=== PATIENT | female | born 1940 | race Caucasian/White ===

== ENCOUNTER 2018-06-06 08:55 | Day surgery (SDC) | payer OTHER, MEDICARE ==
[~2018-06-06 08:55] MED LIST: ONDANSETRON 4 MG (ODT) TAB PO SCH
--- OUTSIDE RECORDS SUMMARY | 2018-06-06 09:38 | XMS REPORT | Clinical Summary ---
:1940 Author Organization [facility] Address [address] [place] [id number] Care Team Providers Name Role Phone Lawrence Aburto MD Primary Care Provider Allergies Not on File Current Medications Not on file Active Problems Not on file Encounters Date Type Specialty Care Team Description 05/25/2018 Hospital Encounter Radiology Bhavesh Tee MD 05/25/2018 Hospital Encounter Radiology Bhavesh Tee, Pain of lower extremity, unspecified laterality; Low back pain, unspecified back pain laterality, unspecified chronicity, with sciatica presence unspecified 05/25/2018 Hospital Encounter Radiology Bhavesh Tee MD 05/25/2018 Hospital Encounter Radiology Bhavesh Tee, Pain of lower extremity, unspecified laterality; Low back pain, unspecified back pain laterality, unspecified chronicity, with sciatica presence unspecified 05/11/2018 Transcribe Orders Access Bhavesh Tee, Pain of lower extremity, unspecified laterality (Primary Dx); Low back pain, unspecified back pain laterality, unspecified chronicity, with sciatica presence unspecified after 06/05/2017 Social History Tobacco Use Types Packs/Day Years Used Date Never Assessed Sex Assigned at Date Recorded Not on file Last Filed Vital Signs Not on file Plan of Treatment Health Maintenance Due Date Last Done Comments SHINGRIX VACCINE (#1) 1991 ZOSTER VACCINE 2001 PNEUMOCOCCAL POLYSACCHARIDE VACCINE AGE 65 AND OVER 2006 PNEUMOCOCCAL-13 2006 INFLUENZA VACCINE 04/11/2018 Procedures Procedure Name Priority Date/Time Associated Diagnosis Comments NM BONE SCAN WHOLE Routine 05/25/2018 2:11 PM Pain of lower Results for this BODY CDT extremity, procedure are in unspecified the results laterality section. Low back pain, unspecified back pain laterality, unspecified chronicity, with sciatica presence unspecified NM SPECT BONE SCAN Routine 05/25/2018 2:10 PM Pain of lower Results for this CDT extremity, procedure are in unspecified the results laterality section. Low back pain, unspecified back pain laterality, unspecified chronicity, with sciatica presence unspecified after 06/05/2017 Results NM Bone Scan Whole Body (05/25/2018 2:11 PM) Narrative Performed At PROCEDURE:NM BONE SCAN WHOLE BODY [facility] INDICATION:Low back pain.Pain of lower extremity. COMPARISON:No comparison imaging. TECHNIQUE: Approximately three hours after the IV administration of 25 mCi of Tc-99m labeled MDP, routine whole body planar bone scanning was performed in the anterior and posterior projections. SPECT imaging of the lumbar spine was obtained. FINDINGS:Planar and SPECT imaging of the lumbar spine demonstrates diffuse degenerative uptake.No evidence for underlying compression fracture.Whole body imaging demonstrates degenerative uptake in the shoulders, right hip, and right knee. IMPRESSION: 1.Diffuse degenerative uptake in the lumbar spine.No evidence for acute fracture or aggressive bone lesion. 2.Degenerative uptake about the right hip. [facility]-[id number] Procedure Note Interface, Radiology Results Incoming - 05/25/2018 5:06 PM CDT PROCEDURE: NM BONE SCAN WHOLE BODY INDICATION: Low back pain. Pain of lower extremity. COMPARISON: No comparison imaging. TECHNIQUE: Approximately three hours after the IV administration of 25 mCi of Tc-99m labeled MDP, routine whole body planar bone scanning was performed in the anterior and posterior projections. SPECT imaging of the lumbar spine was obtained. FINDINGS: Planar and SPECT imaging of the lumbar spine demonstrates diffuse degenerative uptake. No evidence for underlying compression fracture. Whole body imaging demonstrates degenerative uptake in the shoulders, right hip, and right knee. IMPRESSION: 1. Diffuse degenerative uptake in the lumbar spine. No evidence for acute fracture or aggressive bone lesion. 2. Degenerative uptake about the right hip. [facility]-[id number] Performing Organization Address City/State/Zipcode Phone Number [facility] [address] [place] [address] NM Spect Bone Scan (05/25/2018 2:10 PM) Narrative Performed At PROCEDURE:NM SPECT BONE SCAN. [facility] INDICATION:Low back pain.Pain of lower extremity. COMPARISON:No comparison imaging. TECHNIQUE: Approximately three hours after the IV administration of 25 mCi of Tc-99m labeled MDP, routine whole body planar bone scanning was performed in the anterior and posterior projections. SPECT imaging of the lumbar spine was obtained. FINDINGS:Planar and SPECT imaging of the lumbar spine demonstrates diffuse degenerative uptake.No evidence for underlying compression fracture.Whole body imaging demonstrates degenerative uptake in the shoulders, right hip, and right knee. IMPRESSION: 1.Diffuse degenerative uptake in the lumbar spine.No evidence for acute fracture or aggressive bone lesion. 2.Degenerative uptake about the right hip. [facility]-[id number] Procedure Note [facility], Radiology Results Incoming - 05/25/2018 5:07 PM CDT PROCEDURE: NM SPECT BONE SCAN. INDICATION: Low back pain. Pain of lower extremity. COMPARISON: No comparison imaging. TECHNIQUE: Approximately three hours after the IV administration of 25 mCi of Tc-99m labeled MDP, routine whole body planar bone scanning was performed in the anterior and posterior projections. SPECT imaging of the lumbar spine was obtained. FINDINGS: Planar and SPECT imaging of the lumbar spine demonstrates diffuse degenerative uptake. No evidence for underlying compression fracture. Whole body imaging demonstrates degenerative uptake in the shoulders, right hip, and right knee. IMPRESSION: 1. Diffuse degenerative uptake in the lumbar spine. No evidence for acute fracture or aggressive bone lesion. 2. Degenerative uptake about the right hip. [facility]-[id number] Performing Organization Address City/State/Zipcode Phone Number [facility] [address] [place] [address] after 06/05/2017 Insurance Payer Benefit Plan / Group Subscriber ID Type Phone Address MEDICARE MEDICARE PART A AND B xxxxxxxxxx Medicare [place], [place] AARP AARP SUPPLEMENT xxxxxxxxxx Commercial Home: [address] [phone] [place], [place] [phone]
--- NOTE | 2018-06-06 19:27 | RAD REPORT ---
EXAM DESCRIPTION: RAD - Myelography Entire Spine - 06/06/2018 1:09 pm CLINICAL HISTORY: Radiculopathy FINDINGS: The risks, benefits and alternatives to the procedure were explained to the patient and in formed consent obtained. Patient was placed prone into the fluoroscopy suite. Subcutaneous tissues and skin were anesthetized Lidocaine. 22 gauge spinal needle was advanced into the thecal sac at the L2-3 level. 12 cc Isovue-300 was administered into the thecal sac. Frontal, oblique and lateral views of the lower lumbar spine were obtained. The patient then left the department for the CT suite for additional imaging. Patient experienced no immediate complication. Nine fluoroscopic spot images were obtained Fluoroscopy time 1 minutes 33 seconds IMPRESSION: Myelogram. Please refer to the CT spine report for findings
--- NOTE | 2018-06-06 19:47 | RAD REPORT ---
EXAM DESCRIPTION: CTThoracic Spine W/o Cont06/06/2018 7:29 pm CLINICAL HISTORY: Radiculopathy COMPARISON: None TECHNIQUE: Computed axial tomography of thoracic spine was obtained with coronal and sagittal recons truction. 12 cc Isovue [address] was administered [address] All CT scans are performed using dose optimization technique as appropriate and may include automated exposure control or mA/KV adjustment according to patient size. FINDINGS: Kyphosis involves the thoracic spine. Anterior bridging osteophytes across all of the the thoracic vertebra likely indicate diffuse idiopathic skeletal hyperostosis. A significant disc bulge is not seen. Disc herniation is not noted. Central spinal stenosis is not pr esent. The neural foramina are patent. Spinal cord is normal caliber. Incidental note is made of calcified thyroid nodules. IMPRESSION: No significant abnormality of spinal canal/neural foramina is displayed
--- NOTE | 2018-06-06 20:21 | RAD REPORT ---
EXAM DESCRIPTION: CT - C Spine Wo Con - 06/06/2018 7:28 pm CLINICAL HISTORY: Radiculopathy COMPARISON: MRI April 2018 TECHNIQUE: Computed axial tomography of the cervical spine were obtained with sagittal and coronal r econstruction images generated and reviewed. 12 cc Isovue was administered into thecal sac. All CT scans are performed using dose optimization technique as appropriate and may include automated exposure control or mA/KV adjustment according to patient size. FINDINGS: Disc bulge and osteophytes at C2-3 mildly encroach upon the thecal sac. The neural foramin a are patent Small central disc herniation is present C3-4. Ligamentum flavum hypertrophy is seen. Thecal sac lesly ures 9 millimeters. Left facet hypertrophy is present. Mild narrowing left neural foramina is seen. An asymmetric disc bulge and osteophytes are present at C4-5. Thecal sac measures 10 millimeters. Mil d narrowing of the neural foramina bilaterally is seen. Disc bulge, facet hypertrophy and osteophytes C5-6 result in mild narrowing of the thecal sac. Mild t o moderate narrowing the right neural foramina is noted. Disc bulge and osteophytes are present at C6-7. Mild narrowing of the left and moderate narrowing of the right neural foramina is seen. Thecal sac is mildly narrowed. Osteophyte C7-T1 minimally encroach upon the thecal sac. Spinal cord is normal size. IMPRESSION: A small central disc herniation C3-4. Spondylosis C5-6 resulting in mild to moderate right foraminal stenosis Spondylosis C6-7 resulting in moderate foraminal stenosis
--- NOTE | 2018-06-06 20:32 | RAD REPORT ---
EXAM DESCRIPTION: CTSpine Lumbar Wo Con06/06/2018 1:56 pm CLINICAL HISTORY: Right leg radiculopathy COMPARISON: April 2018 MRI TECHNIQUE: Computed axial tomography lumbar spine was obtained with coronal and sagittal reconstruct ion. 12 cc 300 Isovue was administered into the thecal sac All CT scans are performed using dose optimization technique as appropriate and may include automated exposure control or mA/KV adjustment according to patient size. FINDINGS: T12-L1, L1-2, L2-3 and L3-4 are unremarkable Disc bulge with ligamentum flavum and facet hypertrophy is present at L4-5. The thecal sac measures 1 0 millimeters. Mild narrowing of the neural foramina bilaterally is seen. L5-S1 disc is thinned. Facet hypertrophy is present. Neural foramina are patent. Thecal sac is not si gnificantly narrowed. Mild epidural lipomatosis involves the upper sacral spinal canal. Marked epidur al lipomatosis involves the remainder of the lumbar spine. Alignment of the lumbar spine is satisfactory. 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
== END 2018-06-06 17:15 | disposition home or self-care (01) ==
LOC: RAD 08:55
PROVIDERS: ATTEND Neurological Surgery
DX: M54.5 Low back pain (principal); M54.17 Radiculopathy, lumbosacral region
CPT/HCPCS: 62305; 72125; 72128; 72131; Q9967; 72126

== ENCOUNTER 2019-09-18 06:00 | Day surgery (SDC) | payer OTHER, MEDICARE ==
[2019-09-16 14:27] LABS: Absolute Lymphocytes (CBC) 1.2 K/uL (0.7-4.9); Basophils % 0.6 % (0-1.3); Hematocrit 42.9 % (36.0-45.0); Lymphocytes % 14.7 % (15.3-44.8); RBC Red Blood Cell Count 4.43 M/uL (3.86-4.86)
--- NOTE | 2019-09-16 14:30 | RAD REPORT ---
EXAM DESCRIPTION: RAD - Chest Pa And Lat (2 Views) - 09/16/2019 2:24 pm CLINICAL HISTORY: pre op Chest pain. COMPARISON: Chest Pa And Lat (2 Views) dated 07/30/2019 FINDINGS: The lungs are clear. The heart is upper limit of normal in size with sternotomy wires pres ent. Osteopenia is seen. No displaced fracture evident.
[2019-09-16 14:43] LABS: Potassium 4.2 mmol/L (3.5-5.1)
--- NOTE | 2019-09-16 14:49 | EKG ---
Test Date: 2019-09-16 Test Time: 15:30:12 Channel Layer: ANDRES MEASUREMENT RESULTS: Intervals: Rate: 79 OR: 168 QRSD: 92 QT: 370 QTc: 424 [place]: P: 76 OR: 168 QRS: 12 T: 104 INTERPRETIVE STATEMENTS: Normal sinus rhythm Left ventricular hypertrophy with repolarization abnormality Abnormal ECG Compared to ECG 07/03/2004 12:57:00 Left ventricular hypertrophy now present Early repolarization now present Myocardial infarct finding no longer present Electronically Signed On 09-16-19 14:48:33 TRAINING EXECUTIVE by Parmjit Mandel
[2019-09-18] MEDS ORDERED: NA CHLORIDE 0.9% 1,000 ML ONE (06:40)
[2019-09-18] MEDS ORDERED: FENTANYL CITR 100 MCG/2 ML ONE (07:22)
[2019-09-18] MEDS ORDERED: LIDOCAINE 1% MPF 5 ML VIAL ONE (07:22)
[2019-09-18] MEDS ORDERED: propofoL 200 MG/20 ML VIAL IV ONE (07:22)
[2019-09-18] MEDS ORDERED: CIPROFLOXACIN 400mg IV 400 MG/200 ML BAG IV ONE (07:43)
[2019-09-18] MEDS ORDERED: ONDANSETRON 4 MG/2 ML VIAL ONE (07:59)
[2019-09-18] MEDS ORDERED: KETOROLAC 30 MG/ML INJ ONE (07:59)
--- NOTE | 2019-09-18 08:45 | P.BOP ---
Preoperative diagnosis: Bright red blood per rectum, Prolapse thrombosed hemorrhoid Postoperative diagnosis: same Primary procedure: 1. EUA, 2. anoscopy, 3. rigid prostoscopy Secondary procedure: 4. hemorrhoidectomy one bundle Estimated blood loss: <10cc Specimen: hemorrhoid Findings: bleeding partially thrombosed hemorrhoids Anesthesia: General Complications: None Drain(s): Other (foam and surgical with chromic sticht marker) Transferred to: Recovery Room Condition: Good
[2019-09-18] MEDS: MORPHINE 4 MG/ML SYR ONE ×4 (08:58→09:43)
[2019-09-18] MEDS ORDERED: PROMETHAZINE INJ 25 MG/ML AMP ONE (09:40)
[2019-09-18 10:57] VITALS: BP 140/61; TEMP 97.3; O2SAT 96
[2019-09-18] MEDS ORDERED: TRAMADOL HCL 50 MG TAB PO ONE (11:43)
[2019-09-18] MEDS ORDERED: TRAMADOL HCL 50 MG TAB ONE (11:44)
--- NOTE | 2019-09-18 19:49 | OP ---
Date of Procedure: 09/18/2019 Surgeon: Levon Skelton MD Preoperative Diagnoses: Bright red blood per rectum; prolapsed, thrombosed, multiple hemorrhoids. Postoperative Diagnoses: Bright red blood per rectum; prolapsed, thrombosed, multiple hemorrhoids. Procedure: Examination under anesthesia, anoscopy, rigid proctoscopy, hemorrhoidectomy 1 bundle. Specimen: Hemorrhoids. Findings: Patient has multiple hemorrhoids circumferential, internal and external, but one of them i s partially thrombosed, actively bleeding, and that is the one that is going to be removed today. Thony salazar may need further intervention for other hemorrhoids present in that area. Anesthesia: General plus local. Packing: Foam and Surgicel marked with a chromic stitch. Indications: This is a case of a female who comes to us, sent by the GI doctor, with multiple hemorr hoids, one of them is bleeding actively with partially thrombosed. So, benefits, alternatives, and r isks of examination under anesthesia, anoscopy, rigid proctoscopy, possible hemorrhoidectomy fully ex plained to the patient, which include, but are not limited to infection, bleeding, damage to adjacent structures as complication, recurrence, IL, and even . She also understands this might not rel ieve the symptoms. She might need more than one surgical intervention. She understood and signed th e consent. Description Of Procedure: Patient was brought to the operating room, placed in supine position. Ane sthesia was done without complication. Then, the patient was placed in lithotomy position with prope r protection. A time-out was called. Perianal area was prepped and draped in a sterile fashion. Re ctal examination was done followed by a rigid proctoscopy, limited due to a large amount of stool pre sent. Limited about 7 cm. We noticed internal and external hemorrhoids. We identified a partially thrombosed bleeding with some bleeding hemorrhoids present in posterolateral region. Patient has int ernal and external hemorrhoids that are large and eventually may need to be removed once this urgency is relieved. Anoscope was placed in. once again the anal canal. No masses seen. The s trever enlarge thrombosed hemorrhoid was identified. We opened the anoderm with a scalpel and then proc eed to remove the hemorrhoidal plexus from the anal sphincter and then when we have that , shahnaz thomas proceeded to remove the hemorrhoids with the help of Harmonic Scalpel. The specimen was sent to hany thomas pathologist. Anoderm was approximated with 3-0 chromic. Surgicel and Gelfoam were placed over the area after fully inspected. No bleeding at this point. The sponge count and instrument counts were correct. Local anesthetic was applied. Patient was sent to recovery in stable condition. INDRA/AMBREEN Voice ID: [id number] Report ID: [id number]
--- NOTE | 2019-09-18 19:56 | DS ---
Date of Discharge: 09/18/2019 Diagnoses: Bright red blood per rectum; prolapsed, thrombosed, hemorrhoids. Procedure: Examination under anesthesia, anoscopy, rigid proctoscopy, hemorrhoidectomy. Disposition: Home. Activity: As tolerated. No heavy lifting. Sitz baths 3 times a day and after every bowel movement. Hospital Course: We left the Surgicel with a foam placed in that area. We placed a marker stitch wi th 0 chromic on that area, so the patient can identify when that dressing comes out. We prefer to se e the patient this Monday in the office in the morning to evaluate the area once again. Medications: p.o. q.12. Patient already takes tramadol, we are going to extend that and given a prescription. MIGUEL Voice ID: [id number] Report ID: [id number]
== END 2019-09-18 12:34 | disposition home or self-care (01) ==
LOC: OR 06:00
PROVIDERS: ATTEND Surgery
PROC: 06BY4ZC Excision of Hemorrhoidal Plexus, Percutaneous Endoscopic Approach (ICD-10-PCS; principal; 2019-09-18 07:30)
DX: K64.5 Perianal venous thrombosis (principal)
CPT/HCPCS: 93005; 85025; 80048; 36415; 82947; 88304; 71046; 46255; J2704; J2550; J3010; J7030; J2405; J0744; 88302